=== PATIENT | male | born 2000 | race Two or more races ===

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

== ENCOUNTER 2024-08-29 23:07 | Emergency (ER) | payer BC ==
[~2024-08-29] VITALS: Ht 170.2 cm; Wt 68.6 kg
[2024-08-30 01:00] VITALS: BP 123/60; PULSE 90; RESP 16; TEMP 99; O2SAT 97
[2024-08-30] MEDS: LIDOCAINE 1% HCL (LOCAL ANESTH.) INJ 20ML MDV ID ONE (01:15)
[2024-08-30] MEDS ORDERED: AUG875T PO (01:38)
--- NOTE | 2024-08-30 01:40 | ED.PDOC ---
History of Present Illness(SKN HPI Comments C/C of animal bite to left lateral and anterior forearm. Noted x2, 3cm circular punctures to forearm. Wound to lateral forearm 3cm deep, through muscle, bleeding uncontrolled when unwrapped. Wound to anterior upper forearm, 3 cm deep, through tissue, bleeding slowly when unwrapped. Pt states he was out walking his pit-bull, and attacked by stray pit-bul, causing wounds. Pt denies thinner, or any PMH. VSS. NKDA. No obvious distress noted. Chief Complaint: Animal Bite Time Seen by MD: 23:09 History of Present Illness: Nurses Notes, Medications, Allergies Allergies: Coded Allergies: NO KNOWN ALLERGIES (Unverified , 12/22/20) Information Source: Patient Mode of Arrival: Ambulatory Past Medical History PAST MEDICAL HISTORY: Denies Surgical History: Denies all surgeries Family History Family History: Reviewed,noncontributory to illness Social History Smoker: Non-Smoker Alcohol: Denies ETOH Use Drugs: Marijuana Constitutional: denies: chills, diaphoresis, fatigue, fever, malaise, sweats, weakness, others EENTM: denies: blurred vision, double vision, ear bleeding, ear discharge, ear drainage, ear pain, ear ringing, eye pain, eye redness, hearing loss, mouth pain, mouth swelling, nasal discharge, nose bleeding, nose congestion, nose pain, photophobia, tearing, throat pain, throat swelling, voice changes, others Respiratory: denies: cough, hemoptysis, orthopnea, SOB at rest, shortness of breath, SOB with excertion, stridor, wheezing, others Cardiovascular: denies: chest pain, dizzy spells, diaphoresis, Dyspnea on exertion, edema, irregular heart beat, left arm pain, lightheadedness, palpitations, PND, syncope, others Gastrointestinal: denies: abdomen distended, abdominal pain, blood streaked bowels, constipated, diarrhea, dysphagia, difficulty swallowing, hematemesis, melena, nausea, poor appetite, poor fluid intake, rectal bleeding, rectal pain, vomiting, others Genitourinary: denies: burning, dysuria, flank pain, frequency, hematuria, incontinence, penile discharge, penile sore, pain, testicle pain, testicle swelling, urgency, others Neurological: denies: dizziness, fainting, headache, left sided numbness, left sided weakness, numbness, paresthesia, pre-existing deficit, right sided numbness, right sided weakness, seizure, speech problems, tingling, tremors, weakness, others Musculoskeletal: denies: back pain, gout, joint pain, joint swelling, muscle pain, muscle stiffness, neck pain, others Integumetry: reports: wounds (TWO PUNCTURE WOUNDS LEFT FOREARM); denies: bruises, change in color, change in hair/nails, dryness, laceration, lesions, lumps, rash, others Allergic/Immunocompromised: denies: Difficulty Healing, Frequent Infections, Hives, Itching, others Hematologic/Lymphatic: denies: anemia, blood clots, easy bleeding, easy bruising, swollen glands, others Endocrine: denies: excessive hunger, excessive sweating, excessive thirst, excessive urination, flushing, intolerance to cold, intolerance to heat, unexplained weight gain, unexplained weight loss, others Psychiatric: denies: anxiety, bipolar disorder, depression, hopeless, panic disorder, schizophrenia, sleepless, suicidal, others Physical Exam General Appearance: No Apparent Distress, Normal HEENT: Pharynx Normal Neck: Full Range of Motion, Non-Tender Respiratory: Lungs Clear, No Respiratory Distress, Normal Breath Sounds Cardiovascular: No Murmur, Normal Peripheral Pulses, Regular Rate/Rhythm Breast Exam: Deferred Gastrointestinal: Non Tender, Soft Genitalia: Deferred Pelvic: Deferred Rectal: Deferred Extremities: Normal capillary refill, Normal inspection, Normal range of motion, Non-tender, No pedal edema Musculoskeletal : Apperance: Normal Neurologic: Alert, contract forester II-XII nml as Tested, No Motor Deficits, Normal Affect, Normal Mood, No Sensory Deficits Cerebellar Function: Normal Reflexes: Normal Skin: Dry, Lacerations (1.5 CM PUNCTURE WOUND TO LEFT ANTERIOR FOREARM EXPOSED FULL-THICKNESS LACERATION. OBVIOUS FOREIGN BODY. CM PUNCTURE WOUND TO LEFT ANTERIOR ARM AC AREA WITH FAT EXPOSURE FULL-THICKNESS), Normal Color, Warm Lymphatic: No Adenopathy Was a procedure done? Was a procedure done?: Yes Sedation Sedation?: No Informed consent obtained: Yes Laceration Repair : Location LEFT ANTERIOR PROXIMAL FOREARM Length 1.5 CM, AND 0.5 CM Anesthetic: Lidocaine, Without epi Laceration Repair Prep: Saline, by Irrigation Laceration Repair Wound Comple: epidermis/dermis repair Laceration Repair: Number of sutures (5), Simple Informed consent obtained: Yes Risks, benefits, and alternati: Yes Notes PATIENT TOLERATED WELL MINIMAL BLOOD LOSS Differential Diagnosis (INTG) Differential Diagnosis: Laceration, Puncture Wound X-Ray, Labs, Meds, VS Vital Signs Date Time Temp Pulse Resp B/P (MAP) Pulse Ox O2 Delivery O2 Flow Rate FiO2 08/29/24 23:18 98.2 86 16 139/80 (99) 100 98.2 X-Ray, Labs, Meds, VS Comment SEE PROCEDURE NOTE. SCRIPT PROPHYLACTIC ANTIBIOTICS X7 DAYS. ADVISED TO TAKE MEDICATION PRESCRIBED SIDE EFFECTS DISCUSSED. HE IS TO FOLLOW UP WITH HIS PCP, OR URGENT CARE OR HERE FOR WOUND RE-EVALUATION IN 2 DAYS. ER RETURN PRECAUTIONS GIVEN FOR UNCONTROLLED BLEEDING OR SIGNS AND SYMPTOMS OF INFECTION. INDICATES UNDERSTANDING AGREES WITH DISCHARGE PLAN OF CARE. Time of 1ST Reevaluation: 00:30 Reevaluation 1ST: Unchanged Time of 2ND Reevaluation: 01:36 Reevaluation 2ND: Improved Patient Education/Counseling: Diagnosis, Treatment, Prognosis, Need For Follow Up Family Education/Counseling: No Family Present Departure 1 Departure Time of Disposition: 01:36 Impression: Primary Impression: Dog bite of multiple sites of left upper arm Qualified Codes: S41.152A - Open bite of left upper arm, initial encounter; W54.0XXA - Bitten by dog, initial encounter Disposition: 01 HOME / SELF CARE / HOMELESS Condition: Stable e-Prescriptions Amoxicillin & Pot Clavulanate (AUGMENTIN TABLET) 875 Mg Tb 875 MG PO BID for 7 Days, #14 TAB Prov: DAVID KESSLER 08/30/24 Discharged With: Self Critical Care Note Critical Care Time?: No Stability Stability form required: DAVID Santoyo August 30, 2024 01:39
[2024-08-30] MEDS: TETANUS-DIPTH-ACEL PERTUSSIS 0.5ML SYR Tdap IM ONE (02:08)
[2024-08-30] MEDS: cefTRIAXone SOD 1,000 MG VL IM ONE (02:34)
== END 2024-08-30 02:52 | disposition home or self-care (01) ==
LOC: ER 23:07
DX: S51.852A Open bite of left forearm, initial encounter (principal); F12.90 Cannabis use, unspecified, uncomplicated; W54.0XXA Bitten by dog, initial encounter; Y93.89 Activity, other specified; Y92.89 Other specified places as the place of occurrence of the external cause; Y99.8 Other external cause status
CPT/HCPCS: 12001; 90471; 90715; 96372; 99284; J0696